=== PATIENT | male | born 1995 | race Caucasian/White ===

== ENCOUNTER 2017-12-31 11:27 | Emergency (ER) | payer BC ==
[2017-12-31 11:55] VITALS: BP 126/60; PULSE 99; TEMP 98.7; BMI 27.6
[2017-12-31] MEDS ORDERED: DIPHTH,PERTUSS(ACELL),TET 0.5 ML DISP.SYRIN IM ONE (12:16)
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
== END 2017-12-31 13:30 | disposition home or self-care (01) ==
LOC: JERFT 11:27
PROC: 2W3DX1Z Immobilization of Left Lower Arm using Splint (ICD-10-PCS; principal; 2017-12-31)
PROC: 3E0234Z Introduction of Serum, Toxoid and Vaccine into Muscle, Percutaneous Approach (ICD-10-PCS; 2017-12-31)
DX: S69.82XA Other specified injuries of left wrist, hand and finger(s), initial encounter (principal); S05.12XA Contusion of eyeball and orbital tissues, left eye, initial encounter; H11.32 Conjunctival hemorrhage, left eye; Y04.2XXA Assault by strike against or bumped into by another person, initial encounter; Y93.89 Activity, other specified; Y92.89 Other specified places as the place of occurrence of the external cause; Y99.8 Other external cause status
CPT/HCPCS: 73130-TC-LT-FY; 73130-TC-RT-FY; 90715; 99281-25